=== PATIENT | female | born 1955 | race Caucasian/White ===

== ENCOUNTER 2018-08-27 00:50 | Emergency (ER) | payer OTHER ==
[~2018-08-27] VITALS: Ht 162.6 cm; Wt 97.5 kg
[~2018-08-27 00:50] MED LIST: AMOXICILLIN500 MG PO; ASPIR 8181 MG PO; ATORVASTATIN CA40 M1 PO; CARISOPRODOL350 MG PO; CLARITHROMYCIN500 M1 PO; FLUOXETINE HCL20 MG PO; GLYBURIDE5 MG PO; HYDROCHLOROTH12.5 M2 PO; PRILOSEC20 MG PO
[2018-08-27 00:54] VITALS: Ht 162.6 cm; Wt 97.5 kg
[2018-08-27 02:21] LABS: BASOPHIL % 0.5 % (0-2); PLATELET COUNT 218 x10^3mcL (130-400); RED CELL DISTRIBUTION WIDTH 13.6 % (11.5-14.5)
[2018-08-27 02:51] LABS: CALCIUM 9.1 mg/dL (8.5-10.1); CARBON DIOXIDE 27.7 mmol/L (21-32); CHLORIDE SERUM 105 mmol/L (98-107); CREATININE SERUM 0.7 mg/dL (0.6-1.0); GFR1 > 60 mL/min; GLUCOSE SERUM 108 mg/dL (74-106); POTASSIUM SERUM 4.1 mmol/L (3.5-5.1); SODIUM SERUM 142 mmol/L (136-145)
[2018-08-27 02:55] LABS: ALBUMIN 4.2 g/dL (3.4-5.0); ALKALINE PHOSPHATASE 107 U/L (46-116); ALT/SGPT 6 U/L (14-59); AST/SGOT 16 U/L (15-37); BILIRUBIN TOTAL 0.27 mg/dL (0.20-1.00); CHOLESTEROL 140 mg/dL (<200); CHOLESTEROL/HDL RATIO 3.4; HDL CHOLESTEROL 41 mg/dL (40-60); LIPASE 149 IU/L (73-393); TOTAL PROTEIN, SERUM 7.2 g/dL (6.4-8.2); TRIGLYCERIDES 135 mg/dL (<150)
[2018-08-27 03:11] LABS: FREE T4 1.14 ng/dL (0.76-1.46); FREE THYROXINE INDEX 3.7 ug/dL (1.4-4.5); T4(THYROXINE) 11.1 ug/dL (4.7-13.3)
[2018-08-27 04:01] LABS: T3 TOTAL 1.44 ng/mL
[2018-08-27 04:52] VITALS: BP 123/71
[2018-08-27 05:37] LABS: microscopic required? YES; urine erythrocyte NEGATIVE (NEGATIVE)
== END 2018-08-27 04:59 | disposition home or self-care (01) ==
LOC: ED 00:50
PROVIDERS: Specialist
DX: R07.89 Other chest pain (principal); R07.81 Pleurodynia; I10 Essential (primary) hypertension; E11.9 Type 2 diabetes mellitus without complications; F32.9 Major depressive disorder, single episode, unspecified; E78.00 Pure hypercholesterolemia, unspecified
CPT/HCPCS: 83880; 84439; J1885; J2270; J2405; J3010; J7030; Q9967

== ENCOUNTER 2019-01-14 23:35 | Emergency (ER) | payer OTHER ==
[~2019-01-14] VITALS: Ht 162.6 cm; Wt 95.3 kg
[2019-01-14 23:49] VITALS: Ht 162.6 cm; Wt 95.3 kg
[2019-01-15 02:26] VITALS: BP 152/98
== END 2019-01-15 02:26 | disposition home or self-care (01) ==
LOC: ED 23:35
DX: J40 Bronchitis, not specified as acute or chronic (principal); J06.9 Acute upper respiratory infection, unspecified; E88.81 Metabolic syndrome and other insulin resistance; E66.9 Obesity, unspecified; E78.00 Pure hypercholesterolemia, unspecified; I10 Essential (primary) hypertension; E11.9 Type 2 diabetes mellitus without complications
CPT/HCPCS: 82962; J1885

== ENCOUNTER 2019-05-13 14:22 | Inpatient (IN) | payer OTHER ==
[~2019-05-13] VITALS: Ht 162.6 cm; Wt 87.1 kg
[2019-05-13 14:32] VITALS: Ht 162.6 cm; Wt 87.1 kg
[2019-05-13 15:24] LABS: BASOPHIL % 0.3 % (0-2); PLATELET COUNT 244 x10^3mcL (130-400); RED CELL DISTRIBUTION WIDTH 13.7 % (11.5-14.5)
[2019-05-13 15:42] LABS: CALCIUM 9.2 mg/dL (8.5-10.1); CARBON DIOXIDE 26.5 mmol/L (21-32); CHLORIDE SERUM 106 mmol/L (98-107); CREATININE SERUM 0.7 mg/dL (0.6-1.0); GFR1 > 60 mL/min; GLUCOSE SERUM 113 mg/dL (74-106); POTASSIUM SERUM 3.8 mmol/L (3.5-5.1); SODIUM SERUM 145 mmol/L (136-145)
[2019-05-13 15:55] LABS: ALBUMIN 4.1 g/dL (3.4-5.0); ALKALINE PHOSPHATASE 123 U/L (46-116); ALT/SGPT 40 U/L (14-59); AST/SGOT 16 U/L (15-37); BILIRUBIN TOTAL 0.4 mg/dL (0.20-1.00); CHOLESTEROL 125 mg/dL (<200); HDL CHOLESTEROL 36 mg/dL (40-60); LIPASE 79 IU/L (73-393); T4(THYROXINE) 10.3 ug/dL (4.7-13.3); TOTAL PROTEIN, SERUM 7.4 g/dL (6.4-8.2)
[2019-05-13 15:58] LABS: UA SPECIFIC GRAVITY 1.025 (1.005-1.035); microscopic required? YES; urine erythrocyte TRACE (NEGATIVE)
[2019-05-13 16:16] LABS: AMPHETAMINE QUAL UR NONE DETECTED (See below)
[2019-05-13 20:45] VITALS: BP 152/82
[2019-05-14 05:24] VITALS: BP 143/72
[2019-05-14 07:55] LABS: BASOPHIL % 0.3 % (0-2); PLATELET COUNT 213 x10^3mcL (130-400); RED CELL DISTRIBUTION WIDTH 13.6 % (11.5-14.5)
[2019-05-14 08:31] LABS: CALCIUM 8.6 mg/dL (8.5-10.1); CARBON DIOXIDE 25.1 mmol/L (21-32); CHLORIDE SERUM 108 mmol/L (98-107); CREATININE SERUM 0.6 mg/dL (0.6-1.0); GFR1 > 60 mL/min; GLUCOSE SERUM 87 mg/dL (74-106); MAGNESIUM 1.7 mg/dL (1.8-2.4); PHOSPHOROUS 3.5 mg/dL (2.5-4.9); POTASSIUM SERUM 3.9 mmol/L (3.5-5.1); SODIUM SERUM 143 mmol/L (136-145)
[2019-05-14 08:47] VITALS: BP 176/83
[2019-05-14 10:30] VITALS: BP 146/74
[2019-05-14] MEDS ORDERED: BAYER ASPIRIN R81 MG PO (10:34)
[2019-05-14] MEDS ORDERED: NOR5 (10:35)
[2019-05-14] MEDS ORDERED: BENAZEPRIL HYDR20 M1 PO (10:36)
[2019-05-14] MEDS ORDERED: FLUOXETINE40 MG PO (10:36)
[2019-05-14] MEDS ORDERED: METFORMIN HCL1000 MG PO (10:37)
[2019-05-14] MEDS ORDERED: MASON NATURAL1000 IU PO (10:38)
[2019-05-14] MEDS ORDERED: JARDIANCE25 MG PO (10:39)
[2019-05-14 17:23] VITALS: BP 137/70
[2019-05-14 20:35] VITALS: BP 113/56
[2019-05-15 05:08] VITALS: BP 143/72
[2019-05-15 08:14] LABS: CALCIUM 8.8 mg/dL (8.5-10.1); CARBON DIOXIDE 27.2 mmol/L (21-32); CHLORIDE SERUM 107 mmol/L (98-107); CREATININE SERUM 0.6 mg/dL (0.6-1.0); GFR1 > 60 mL/min; GLUCOSE SERUM 94 mg/dL (74-106); MAGNESIUM 2.1 mg/dL (1.8-2.4); PHOSPHOROUS 3.4 mg/dL (2.5-4.9); POTASSIUM SERUM 3.9 mmol/L (3.5-5.1); SODIUM SERUM 143 mmol/L (136-145)
[2019-05-15 08:19] VITALS: BP 141/82
[2019-05-15 08:33] LABS: BASOPHIL % 0.4 % (0-2); PLATELET COUNT 225 x10^3mcL (130-400); RED CELL DISTRIBUTION WIDTH 13.8 % (11.5-14.5)
[2019-05-15 17:23] VITALS: BP 153/77
[2019-05-15 21:19] VITALS: BP 154/75
[2019-05-16 06:03] VITALS: BP 149/83
[2019-05-16 06:54] LABS: BASOPHIL % 0.4 % (0-2); PLATELET COUNT 211 x10^3mcL (130-400); RED CELL DISTRIBUTION WIDTH 13.6 % (11.5-14.5)
[2019-05-16 07:20] LABS: CALCIUM 9.1 mg/dL (8.5-10.1); CARBON DIOXIDE 23.2 mmol/L (21-32); CHLORIDE SERUM 108 mmol/L (98-107); CREATININE SERUM 0.6 mg/dL (0.6-1.0); GFR1 > 60 mL/min; GLUCOSE SERUM 108 mg/dL (74-106); MAGNESIUM 1.9 mg/dL (1.8-2.4); PHOSPHOROUS 3.4 mg/dL (2.5-4.9); POTASSIUM SERUM 3.5 mmol/L (3.5-5.1); SODIUM SERUM 141 mmol/L (136-145)
[2019-05-16] MEDS ORDERED: BACTRIM DS1 TAB PO (09:54)
[2019-05-16 13:30] VITALS: BP 147/78
[2019-05-16 17:34] VITALS: BP 143/81
[2019-05-16 21:21] VITALS: BP 137/69
[2019-05-17 06:02] VITALS: BP 142/73
[2019-05-17 06:48] LABS: BASOPHIL % 0.5 % (0-2); PLATELET COUNT 210 x10^3mcL (130-400); RED CELL DISTRIBUTION WIDTH 13.5 % (11.5-14.5)
[2019-05-17 06:59] LABS: CALCIUM 8.8 mg/dL (8.5-10.1); CHLORIDE SERUM 108 mmol/L (98-107); CREATININE SERUM 0.6 mg/dL (0.6-1.0); GFR1 > 60 mL/min; GLUCOSE SERUM 102 mg/dL (74-106); POTASSIUM SERUM 3.9 mmol/L (3.5-5.1); SODIUM SERUM 142 mmol/L (136-145)
[2019-05-17 08:46] VITALS: BP 142/78
[2019-05-17] MEDS ORDERED: ROBDML PO (08:57)
[2019-05-17 09:00] VITALS: BP 142/78
[2019-05-17 13:31] VITALS: BP 142/78
== END 2019-05-17 16:08 | disposition home or self-care (01) | DRG 690 ==
LOC: ED 14:22 → MU 18:44
PROVIDERS: Emergency Medicine; Internal Medicine; ADMIT General Practice
DX: N12 Tubulo-interstitial nephritis, not specified as acute or chronic (principal); E11.65 Type 2 diabetes mellitus with hyperglycemia; I10 Essential (primary) hypertension; M47.896 Other spondylosis, lumbar region; N28.1 Cyst of kidney, acquired; F32.9 Major depressive disorder, single episode, unspecified; E78.00 Pure hypercholesterolemia, unspecified; N39.41 Urge incontinence; E78.5 Hyperlipidemia, unspecified; E66.9 Obesity, unspecified; Z68.32 Body mass index [BMI] 32.0-32.9, adult; Z79.84 Long term (current) use of oral hypoglycemic drugs
CPT/HCPCS: 82962; 90732; G0378; G0480; J0696; J1885; J2270; J3475; J7030; Q0092

== ENCOUNTER 2019-10-24 08:15 | Emergency (ER) | payer OTHER ==
[~2019-10-24] VITALS: Ht 162.6 cm; Wt 90.7 kg
[~2019-10-24 08:15] MED LIST changes: +BACTRIM DS1 TAB PO; +BAYER ASPIRIN R81 MG PO; +BENAZEPRIL HYDR20 M1 PO; +FLUOXETINE40 MG PO; +JARDIANCE25 MG PO; +MASON NATURAL1000 IU PO; +METFORMIN HCL1000 MG PO; +NOR5; +ROBDML PO
[2019-10-24 08:21] VITALS: Ht 162.6 cm; Wt 90.7 kg
[2019-10-24 09:07] LABS: BASOPHIL % 0.8 % (0-2); PLATELET COUNT 220 x10^3mcL (130-400); RED CELL DISTRIBUTION WIDTH 13.7 % (11.5-14.5)
[2019-10-24 09:23] LABS: CALCIUM 8.6 mg/dL (8.5-10.1); CARBON DIOXIDE 25.7 mmol/L (21-32); CHLORIDE SERUM 103 mmol/L (98-107); CREATININE SERUM 0.8 mg/dL (0.6-1.0); GFR1 > 60 mL/min; GLUCOSE SERUM 190 mg/dL (74-106); POTASSIUM SERUM 3.8 mmol/L (3.5-5.1); SODIUM SERUM 138 mmol/L (136-145)
[2019-10-24 11:10] VITALS: BP 142/73
== END 2019-10-24 11:10 | disposition home or self-care (01) ==
LOC: ED 08:15
PROVIDERS: Emergency Medicine
DX: J20.9 Acute bronchitis, unspecified (principal); I10 Essential (primary) hypertension; E11.9 Type 2 diabetes mellitus without complications; E78.00 Pure hypercholesterolemia, unspecified; F32.9 Major depressive disorder, single episode, unspecified; M19.90 Unspecified osteoarthritis, unspecified site; Z98.890 Other specified postprocedural states
CPT/HCPCS: J1885